=== PATIENT | female | born 1995 | race Caucasian/White ===

== ENCOUNTER 2018-02-19 23:41 | Emergency (ER) | payer SELFPAY ==
[~2018-02-19] VITALS: Ht 162.6 cm; Wt 58.0 kg
[2018-02-20 00:10] VITALS: BP 131/84; PULSE 105; RESP 16; TEMP 98.6; O2SAT 100
--- NOTE | 2018-02-20 02:49 | PD ---
HPI Chief Complaint: Dysuria Time Seen by Provider: 02:45 Travel History International Travel<30 days: No Contact w/Intl Traveler<30days: No Traveled to known affect area: No History of Present Illness HPI 22-year-old white female presents emergency department with a 5 month history of urinary frequency and urgency. She states that she has been to an urgent care on 2 prior occasions. She was told that her urinalysis were negative. She was placed on an antibiotic without relief. She has not followed up with a urologist or a regular primary care doctor. She states that she is a very busy and cannot follow-up. She presents to the ER [facility] for third opinion. She denies any fever chills. No nausea vomiting. No abdominal pain. No vaginal discharge or abnormal bleeding. Symptoms are mild. No alleviating symptoms. No exacerbating symptoms. History Past Medical Histgory Medical History: Denies Significant Hx Tetanus Vaccination: < 5 Years Social History Alcohol Use: No Tobacco Use: No Review of Systems Except as stated in HPI: all other systems reviewed are Neg Physical Exam Narrative GENERAL: Well-developed, well-nourished in no acute distress. Nontoxic appearing. HEAD: Normocephalic, atraumatic. EYES: Pupils equal round and reactive. Extraocular motions intact. No scleral icterus. No injection or drainage. ENT: TMs clear without erythema. The external auditory canals clear. Nose: clear . Posterior pharynx is pink and moist. No tonsillar edema or exudate. Uvula midline. Airway patent. NECK: Trachea midline.Supple, nontender, moves head freely. No central bony tenderness or spasm. CARDIOVASCULAR: Regular rate and rhythm without murmurs, gallops, or rubs. RESPIRATORY: Clear to auscultation. Breath sounds equal bilaterally. No wheezes , rales, or rhonchi. GASTROINTESTINAL: Abdomen soft, non-tender, nondistended. No hepato-splenomegaly , or palpable masses. No guarding. EXTREMITIES: No clubbing, cyanosis, or edema. No joint tenderness, effusion, or edema noted. BACK: Nontender without deformity or crepitance. No flank tenderness. Data Data Last Documented VS Vital Signs Date Time Temp Pulse Resp B/P (MAP) Pulse Ox O2 Delivery O2 Flow Rate FiO2 02/20/18 00:10 98.6 105 16 131/84 (100) 100 Room Air MDM Medical Screen Exam Complete: Yes Emergency Medical Condition: Yes Differential Diagnosis MDM: Moderate Differential diagnoses: Pyelonephritis, UTI, vaginitis Narrative Course A medical screening exam was performed: At the time of evaluation the presenting medical condition was determined not to be of an emergent nature. The patient was given the option of receiving additional care, but declined. Patient was given options for additional community resources from which to obtain care. The Patient Has Been advised to seek medical attention for their presenting complaint. The patient has been advised to return to the ER at any time if an emergent condition develops. Primary Impression: Encounter for medical screening examination Condition: Stable Trey Novak Feb 20, 2018 02:49
== END 2018-02-20 02:50 | disposition left against medical advice (07) ==
LOC: NED 23:41 → NEPD 02-20 02:50
DX: R35.0 Frequency of micturition (principal); R39.15 Urgency of urination
CPT/HCPCS: 99281